=== PATIENT | male | born 1995 | race Caucasian/White ===

== ENCOUNTER 2016-04-20 17:06 | Emergency (ER) | payer OTHER ==
--- NOTE | 2016-04-20 18:47 | EDDOCDS ---
Nurse's Notes [facility] Name: Reza Jiang Age: 20 yrs Sex: Male : 1995 Arrival Date: 04/20/2016 Time: 17:06 Bed I8 / 16 Private MD: No Pcp Diagnosis: Chronic nasopharyngitis;Heartburn Presentation: 04/20 17:14 Presenting complaint: Patient states: post nasal drip going into his stomach that is dsf giving him heartburn and making him nauseated. Adult Sepsis Screening: The patient does not have new or worsening altered mentation. Patient's respiratory rate is less than 22. Systolic blood pressure is greater than 100. Patient has a qSOFA score of 0- Negative Sepsis Screen. Suicide/Homicide risk assessment- the patient denies having any suicidal and/or homicidal ideations and does not present with any other emotional, behavioral or mental health complaints. Status: Patient is not a service desk technician or dependent. Transition of care: patient was not received from another setting of care. 17:14 Acuity: CECILLE Level 4 dsf 17:14 Method Of Arrival: Walkin/Carried/Asstd dsf Triage Assessment: 17:15 General: Appears in no apparent distress, Behavior is appropriate for age, cooperative. dsf Pain: Location: epigastric area Pain currently is 6 out of 10 on a pain scale. Quality of pain is described as burning. HIV screening NA for this visit Offered previously. EENT: Reports post nasal drip . Historical: - Allergies: no known allergies; - Home Meds: 1. none - PMHx: none; - PSHx: none; - Social history: Smoking status: Patient uses tobacco products, current every day smoker. No barriers to communication noted, The patient speaks fluent Mohawk, Speaks appropriately for age. - Family history: No immediate family members are acutely ill. - : The pt / caregiver states he / she is not on anticoagulants. Home medication list is obtained from the patient. - Exposure Risk Screening:: None identified. Screenin:28 Screening information is obtained from the patient. Fall risk: No risks identified. mb9 Assistance ADL's: requires no assistance with activities of daily living. Abuse/DV Screen: The patient / caregiver reports he/she is: not in a situation that causes fear, pain or injury. Nutritional screening: No deficits noted. Advance Directives: There is no active DNR order. home support is adequate. Assessment: 18:28 General: Appears in no apparent distress, Behavior is anxious. Pain: Location: mb9 epigastric area Pain currently is 3 out of 10 on a pain scale. Quality of pain is described as burning. Respiratory: Airway is patent Respiratory effort is even, unlabored, Breath sounds are clear bilaterally. Reports cough that is. Vital Signs: 17:08 BP 116 / 66; Pulse 78; Resp 18 S; Temp 98.7(O); Pulse Ox 97% on R/A; Weight 90.72 kg gr2 (R); Height 6 ft. 2 in. (187.96 cm) (R); Pain 3/10; 18:39 BP 127 / 74; Pulse 57; Resp 18; Temp 98.1(O); Pulse Ox 98% on R/A; Pain 0/10; nb2 17:08 Body Mass Index 25.68 (90.72 kg, 187.96 cm) gr2 Vitals: 17:08 Log In Time: April 20, 2016 at 17:08. gr2 ED Course: 17:08 Patient visited by Amaury Walter. gr2 17:08 No Pcp is Private Physician. gr2 17:08 Patient moved to Waiting gr2 17:09 Patient visited by Amaury Walter. gr2 17:09 Patient moved to Pre RCE gr2 17:15 Triage Initiated dsf 18:19 Patient moved to I8 / 16 kr3 18:20 [facility] 18[facility]21 Patient visited by Christina Rodriguez RN. dls 18:25 Patient visited by Armida Ogden FNP. le 18:25 Patient visited by Armida Ogden FNP. le 18:28 The patient / caregiver is instructed regarding the plan of care and ED course. mb9 18:28 No IV's were initiated during this patient's visit. No procedures done that require mb9 assistance. 18:34 [facility] is Referral Physician. le 18:39 Patient visited by Sheila Byrne. nb2 Order Results: There are currently no results for this order. Outcome: 18:34 Discharge ordered by Provider. le 18:45 Discharge Assessment: Patient awake, alert and oriented x 3. No cognitive and/or mb9 functional deficits noted. Patient verbalized understanding of disposition instructions. patient administered narcotics - no. The following High Risk Discharge criteria are identified: None. Discharged to home ambulatory. Condition: good Condition: stable Condition: improved. Discharge instructions given to patient, Instructed on discharge instructions, follow up and referral plans. medication usage, Demonstrated understanding of instructions, medications, Pt was receptive of discharge instructions/ teaching. No special radiology studies were completed. Property :Personal belongings accompany Pt. 18:45 Patient left the ED. mb9 Signatures: Christina Rodriguez, RN RN dls Nancy Montano,RN RN kr3 Armida Ogden, LABORATORY SUPERVISOR LABORATORY SUPERVISOR Mary ColbertRN RN Amaury Gatica 2 Eddi WarnerRN RN mb9 Sheila Byrne nb2 MTDSally
--- NOTE | 2016-04-20 18:47 | EDDOCDS ---
Physician Documentation [facility] Name: Reza Jiang Age: 20 yrs Sex: Male : 1995 Arrival Date: 04/20/2016 Time: 17:06 Bed I8 / 16 Private MD: No Pcp Disposition: 04/20/16 18:34 Discharged to Home/Self Care. Impression: Chronic nasopharyngitis, Heartburn. - Condition is Stable. - Discharge Instructions: Gastroesophageal Reflux Disease, Adult, Upper Respiratory Infection, Adult, Viral Infections. - Medication Reconciliation, Local Pharmacy Hours form. - Follow up: [facility] - Adults; When: Call to arrange an appointment; Reason: Recheck today's complaints, Continuance of care. - Problem is an ongoing problem. - Symptoms are unchanged. - Notes: Use OTC cold/congestion medications to help control symptoms Keep hydrated Return to the ED for worsening symptoms Historical: - Allergies: no known allergies; - Home Meds: 1. none - PMHx: none; - PSHx: none; - Social history: Smoking status: Patient uses tobacco products, current every day smoker. No barriers to communication noted, The patient speaks fluent Georgian, Speaks appropriately for age. - Family history: No immediate family members are acutely ill. - : The pt / caregiver states he / she is not on anticoagulants. Home medication list is obtained from the patient. - Exposure Risk Screening:: None identified. Vital Signs: 04/20 17:08 BP 116 / 66; Pulse 78; Resp 18 S; Temp 98.7(O); Pulse Ox 97% on R/A; Weight 90.72 kg / gr2 200 lbs (R); Height 6 ft. 2 in. (187.96 cm) (R); Pain 3/10; 18:39 BP 127 / 74; Pulse 57; Resp 18; Temp 98.1(O); Pulse Ox 98% on R/A; Pain 0/10; nb2 17:08 Body Mass Index 25.68 (90.72 kg, 187.96 cm) gr2 MDM: 18:41 Financial registration complete. Signatures: Shawna Issa, Reg Reg gb Armida Ogden, SOUND ENGINEER SOUND ENGINEER Mary Colbert RN RN dsf Belles,Eddi,RN RN mb9 MTDD
--- NOTE | 2016-04-22 19:46 | EDDOCDS ---
Physician Documentation [facility] Name: Reza Jiang Age: 20 yrs Sex: Male : 1995 Arrival Date: 04/20/2016 Time: 17:06 Bed I8 / 16 Private MD: No Pcp Disposition: 04/20/16 18:34 Discharged to Home/Self Care. Impression: Chronic nasopharyngitis, Heartburn. - Condition is Stable. - Discharge Instructions: Gastroesophageal Reflux Disease, Adult, Upper Respiratory Infection, Adult, Viral Infections. - Medication Reconciliation, Local Pharmacy Hours form. - Follow up: [facility] - Adults; When: Call to arrange an appointment; Reason: Recheck today's complaints, Continuance of care. - Problem is an ongoing problem. - Symptoms are unchanged. - Notes: Use OTC cold/congestion medications to help control symptoms Keep hydrated Return to the ED for worsening symptoms Historical: - Allergies: no known allergies; - Home Meds: 1. none - PMHx: none; - PSHx: none; - Social history: Smoking status: Patient uses tobacco products, current every day smoker. No barriers to communication noted, The patient speaks fluent Setswana, Speaks appropriately for age. - Family history: No immediate family members are acutely ill. - : The pt / caregiver states he / she is not on anticoagulants. Home medication list is obtained from the patient. - Exposure Risk Screening:: None identified. Vital Signs: 04/20 17:08 BP 116 / 66; Pulse 78; Resp 18 S; Temp 98.7(O); Pulse Ox 97% on R/A; Weight 90.72 kg / gr2 200 lbs (R); Height 6 ft. 2 in. (187.96 cm) (R); Pain 3/10; 18:39 BP 127 / 74; Pulse 57; Resp 18; Temp 98.1(O); Pulse Ox 98% on R/A; Pain 0/10; nb2 17:08 Body Mass Index 25.68 (90.72 kg, 187.96 cm) gr2 MDM: 18:41 Financial registration complete. gb 19:17 [facility] Payment Agreement was scanned into [employer] and attached to record. gb 20:36 T-Sheet-- Draft Copy was scanned into [employer] and attached to record. klr Signatures: Shawna Issa, Reg Reg gb Armida Ogden, SURFACE SHIP USW SUPERVISOR SURFACE SHIP USW SUPERVISORMary Miller RN RN dsEddi Barber RN RN mb9 Estrella De Luna The chart was reviewed and I authenticate all verbal orders and agree with the evaluation and treatment provided.Attachments: 19:17 [facility] Payment Agreement gb 20:36 T-Sheet-- Draft Copy klr Chart Complete MTDD
--- NOTE | 2016-04-22 19:46 | EDDOCDS ---
Physician Documentation [facility] Name: Reza Jiang Age: 20 yrs Sex: Male : 1995 Arrival Date: 04/20/2016 Time: 17:06 Bed I8 / 16 Private MD: No Pcp Disposition: 04/20/16 18:34 Discharged to Home/Self Care. Impression: Chronic nasopharyngitis, Heartburn. - Condition is Stable. - Discharge Instructions: Gastroesophageal Reflux Disease, Adult, Upper Respiratory Infection, Adult, Viral Infections. - Medication Reconciliation, Local Pharmacy Hours form. - Follow up: [facility] - Adults; When: Call to arrange an appointment; Reason: Recheck today's complaints, Continuance of care. - Problem is an ongoing problem. - Symptoms are unchanged. - Notes: Use OTC cold/congestion medications to help control symptoms Keep hydrated Return to the ED for worsening symptoms Historical: - Allergies: no known allergies; - Home Meds: 1. none - PMHx: none; - PSHx: none; - Social history: Smoking status: Patient uses tobacco products, current every day smoker. No barriers to communication noted, The patient speaks fluent Azeri, Speaks appropriately for age. - Family history: No immediate family members are acutely ill. - : The pt / caregiver states he / she is not on anticoagulants. Home medication list is obtained from the patient. - Exposure Risk Screening:: None identified. Vital Signs: 04/20 17:08 BP 116 / 66; Pulse 78; Resp 18 S; Temp 98.7(O); Pulse Ox 97% on R/A; Weight 90.72 kg / gr2 200 lbs (R); Height 6 ft. 2 in. (187.96 cm) (R); Pain 3/10; 18:39 BP 127 / 74; Pulse 57; Resp 18; Temp 98.1(O); Pulse Ox 98% on R/A; Pain 0/10; nb2 17:08 Body Mass Index 25.68 (90.72 kg, 187.96 cm) gr2 MDM: 18:41 Financial registration complete. gb 19:17 [facility] Payment Agreement was scanned into [employer] and attached to record. gb 20:36 T-Sheet-- Draft Copy was scanned into [employer] and attached to record. klr Signatures: Shawna Issa, Reg Reg gb Armida Ogden, DISINTEGRATOR OPERATOR DISINTEGRATOR OPERATORMary Miller RN RN dsEddi Barber RN RN mb9 Estrella De Luna The chart was reviewed and I authenticate all verbal orders and agree with the evaluation and treatment provided.Attachments: 19:17 [facility] [place] Agreement gb 20:36 T-Sheet-- Draft Copy klr Chart Complete MTDD
--- NOTE | 2016-04-22 19:46 | EDDOCDS ---
Nurse's Notes [facility] Name: Reza Jiang Age: 20 yrs Sex: Male : 1995 Arrival Date: 04/20/2016 Time: 17:06 Bed I8 / 16 Private MD: No Pcp Diagnosis: Chronic nasopharyngitis;Heartburn Presentation: 04/20 17:14 Presenting complaint: Patient states: post nasal drip going into his stomach that is dsf giving him heartburn and making him nauseated. Adult Sepsis Screening: The patient does not have new or worsening altered mentation. Patient's respiratory rate is less than 22. Systolic blood pressure is greater than 100. Patient has a qSOFA score of 0- Negative Sepsis Screen. Suicide/Homicide risk assessment- the patient denies having any suicidal and/or homicidal ideations and does not present with any other emotional, behavioral or mental health complaints. Status: Patient is not a medical services manager or dependent. Transition of care: patient was not received from another setting of care. 17:14 Acuity: CECILLE Level 4 dsf 17:14 Method Of Arrival: Walkin/Carried/Asstd dsf Triage Assessment: 17:15 General: Appears in no apparent distress, Behavior is appropriate for age, cooperative. dsf Pain: Location: epigastric area Pain currently is 6 out of 10 on a pain scale. Quality of pain is described as burning. HIV screening NA for this visit Offered previously. EENT: Reports post nasal drip . Historical: - Allergies: no known allergies; - Home Meds: 1. none - PMHx: none; - PSHx: none; - Social history: Smoking status: Patient uses tobacco products, current every day smoker. No barriers to communication noted, The patient speaks fluent German, Speaks appropriately for age. - Family history: No immediate family members are acutely ill. - : The pt / caregiver states he / she is not on anticoagulants. Home medication list is obtained from the patient. - Exposure Risk Screening:: None identified. Screenin:28 Screening information is obtained from the patient. Fall risk: No risks identified. mb9 Assistance ADL's: requires no assistance with activities of daily living. Abuse/DV Screen: The patient / caregiver reports he/she is: not in a situation that causes fear, pain or injury. Nutritional screening: No deficits noted. Advance Directives: There is no active DNR order. home support is adequate. Assessment: 18:28 General: Appears in no apparent distress, Behavior is anxious. Pain: Location: mb9 epigastric area Pain currently is 3 out of 10 on a pain scale. Quality of pain is described as burning. Respiratory: Airway is patent Respiratory effort is even, unlabored, Breath sounds are clear bilaterally. Reports cough that is. Vital Signs: 17:08 BP 116 / 66; Pulse 78; Resp 18 S; Temp 98.7(O); Pulse Ox 97% on R/A; Weight 90.72 kg gr2 (R); Height 6 ft. 2 in. (187.96 cm) (R); Pain 3/10; 18:39 BP 127 / 74; Pulse 57; Resp 18; Temp 98.1(O); Pulse Ox 98% on R/A; Pain 0/10; nb2 17:08 Body Mass Index 25.68 (90.72 kg, 187.96 cm) gr2 Vitals: 17:08 Log In Time: April 20, 2016 at 17:08. gr2 ED Course: 17:08 Patient visited by Amaury Walter. gr2 17:08 No Pcp is Private Physician. gr2 17:08 Patient moved to Waiting gr2 17:09 Patient visited by Amaury Walter. gr2 17:09 Patient moved to Pre RCE gr2 17:15 Triage Initiated dsf 18:19 Patient moved to I8 / 16 kr3 18:20 [facility] 18[facility]21 Patient visited by Christina Rodriguez RN. dls 18:25 Patient visited by Armida Ogden FNP. le 18:25 Patient visited by Armida Ogden FNP. le 18:28 The patient / caregiver is instructed regarding the plan of care and ED course. mb9 18:28 No IV's were initiated during this patient's visit. No procedures done that require mb9 assistance. 18:34 [facility] - [facility] is Referral Physician. le 18:39 Patient visited by Sheila Byrne. nb2 19:17 [facility] Payment Agreement was scanned into [employer] and attached to record. gb 20:36 T-Sheet-- Draft Copy was scanned into [employer] and attached to record. klravi Order Results: There are currently no results for this order. Outcome: 18:34 Discharge ordered by Provider. le 18:45 Discharge Assessment: Patient awake, alert and oriented x 3. No cognitive and/or mb9 functional deficits noted. Patient verbalized understanding of disposition instructions. patient administered narcotics - no. The following High Risk Discharge criteria are identified: None. Discharged to home ambulatory. Condition: good Condition: stable Condition: improved. Discharge instructions given to patient, Instructed on discharge instructions, follow up and referral plans. medication usage, Demonstrated understanding of instructions, medications, Pt was receptive of discharge instructions/ teaching. No special radiology studies were completed. Property :Personal belongings accompany Pt. 18:45 Patient left the ED. karl Signatures: Christina Rodriguez, RN RN Shawna Lau, Nancy Azul RN RN kr3 Armida Ogden, TECHNICAL ASSISTANCE CONSULTANT TECHNICAL ASSISTANCE CONSULTANT Mary Colbert RN RN dsf Raymond, [place] 2 Eddi Warner RN RN [email or web address] Estrella De Luna Nicole nb2 Chart Complete FIORELLA
== END 2016-04-20 18:45 | disposition home or self-care (01) ==
LOC: M ED 17:06
DX: J31.0 Chronic rhinitis (principal); J06.9 Acute upper respiratory infection, unspecified; R12 Heartburn; F17.210 Nicotine dependence, cigarettes, uncomplicated

== ENCOUNTER 2017-04-07 00:43 | Emergency (ER) | payer OTHER ==
[2017-04-07] MEDS ORDERED: NAPROXEN 250 MG TAB PO (04:45)
== END 2017-04-07 04:48 | disposition home or self-care (01) ==
LOC: M ED 00:43
DX: M54.5 Low back pain (principal); F17.210 Nicotine dependence, cigarettes, uncomplicated
CPT/HCPCS: 72110

== ENCOUNTER 2017-07-12 10:54 | Emergency (ER) | payer OTHER | END 2017-07-12 12:34 | disposition home or self-care (01) | LOC: M ED 10:54 | DX: J20.9 Acute bronchitis, unspecified (principal); F17.200 Nicotine dependence, unspecified, uncomplicated; Z91.030 Bee allergy status | CPT/HCPCS: 71046 ==

== ENCOUNTER 2017-07-21 00:44 | Emergency (ER) | payer OTHER ==
[2017-07-21] MEDS: predniSONE 20 MG TAB PO (04:55)
[2017-07-21] MEDS: IPRATROPIUM 0.5MG/ALBUTEROL 2.5MG INH SOL UD 3ML (DUONEB)(J7620) NEB (05:05)
[2017-07-21 06:34] LABS: BASO # 0.1 10^3/uL (0.0-0.2); BASO % 0.2 % (0.0-1.0); EOS # 0.2 10^3/uL (0.0-0.50); EOS % 1.1 % (0.0-3.0); HEMATOCRIT 45.2 % (42.0-52.0); HEMOGLOBIN 15.7 g/dl (13.5-17.5); IMMATURE GRANULOCYTE % 0.4 % (0-3.0); LYMPH # 2.7 10^3/uL (1.5-6.5); LYMPH % 12.1 % (24.0-44.0); MEAN CORPUSCULAR HEMOGLOBIN 31.3 pg (27.0-33.0); MEAN CORPUSCULAR HGB CONC 34.7 g/dl (32.0-36.5); MONO # 1.3 10^3/uL (0.0-0.8); NEUTROPHILS # 17.6 10^3/uL (1.8-7.7); NEUTROPHILS % 80.2 % (36.0-66.0); PLATELET COUNT, AUTOMATED 300 10^3/uL (150-450); RED BLOOD COUNT 5.02 10^6/uL (4.30-6.10); RED CELL DISTRIBUTION WIDTH 12.1 % (11.5-14.5)
[2017-07-21 06:48] LABS: ANION GAP 7 MEQ/L (8-16); BLOOD UREA NITROGEN 15 MG/DL (7-18); CALCIUM LEVEL 8.9 MG/DL (8.5-10.1); CARBON DIOXIDE LEVEL 28 MEQ/L (21-32); CHLORIDE LEVEL 103 MEQ/L (98-107); CREATININE FOR GFR 1.06 MG/DL (0.70-1.30); GLUCOSE, FASTING 123 MG/DL (70-100); POTASSIUM SERUM 3.7 MEQ/L (3.5-5.1); SODIUM LEVEL 138 MEQ/L (136-145)
[2017-07-21] MEDS ORDERED: ISOVUE-370 76% 100ML VIAL (Q9967) As Ordered (06:50)
[2017-07-21] MEDS: LevoFLOXacin 750 MG TABLET PO (07:38)
== END 2017-07-21 07:50 | disposition home or self-care (01) ==
LOC: M ED 00:44
DX: J18.9 Pneumonia, unspecified organism (principal); F17.210 Nicotine dependence, cigarettes, uncomplicated; F12.20 Cannabis dependence, uncomplicated
CPT/HCPCS: Q9967

== ENCOUNTER 2017-11-11 20:56 | Emergency (ER) | payer OTHER ==
[2017-11-11] MEDS ORDERED: LIDOCAINE 1% MDV 20ML VIAL IM (22:45)
[2017-11-12] MEDS: AUGMENTIN 875 MG TAB PO (00:02)
[2017-11-12] MEDS: ADACEL/BOOSTRIX VACCINE (DIPHTH/PERTUSS/ACELL/TETANUS)0.5ML SYR (90715) IM (00:02)
== END 2017-11-12 00:10 | disposition home or self-care (01) ==
LOC: M ED 11-12 00:10
DX: S01.511A Laceration without foreign body of lip, initial encounter (principal); S00.83XA Contusion of other part of head, initial encounter; Y04.0XXA Assault by unarmed brawl or fight, initial encounter; Y92.098 Other place in other non-institutional residence as the place of occurrence of the external cause; F17.200 Nicotine dependence, unspecified, uncomplicated
CPT/HCPCS: 90715

== ENCOUNTER 2017-11-17 16:10 | Emergency (ER) | payer OTHER | END 2017-11-17 21:41 | disposition left against medical advice (07) | LOC: M ED 16:10 | DX: Z53.21 Procedure and treatment not carried out due to patient leaving prior to being seen by health care provider (principal) ==

== ENCOUNTER 2018-07-03 11:02 | Inpatient (IN) | payer MEDICAID, OTHER ==
[~2018-07-03] VITALS: Ht 188 cm; Wt 77.4 kg
[~2018-07-03 11:02] MED LIST: AUGM875T28 PO; LEVA750T7 PO; NAPR-837 PO; PRED20TA PO; TESS100C PO; VENTAER IN
[2018-07-03 11:37] LABS: HEMATOCRIT 45.9 % (42.0-52.0); HEMOGLOBIN 15.6 g/dl (13.5-17.5); MEAN CORPUSCULAR HEMOGLOBIN 32.2 pg (27.0-33.0); MEAN CORPUSCULAR VOLUME 94.8 fl (80.0-96.0); PLATELET COUNT, AUTOMATED 235 10^3/uL (150-450); RED BLOOD COUNT 4.84 10^6/uL (4.30-6.10); WHITE BLOOD COUNT 8.6 10^3/uL (4.0-10.0)
[2018-07-03 12:07] LABS: AMPHETAMINES LEVEL URINE NEGATIVE (NEGATIVE); BARBITURATES URINE NEGATIVE (NEGATIVE); BENZODIAZEPINES URINE NEGATIVE (NEGATIVE); CANNABINOIDS URINE POSITIVE (NEGATIVE); COCAINE METABOLITE URINE NEGATIVE (NEGATIVE); METHADONE URINE NEGATIVE (NEGATIVE); OPIATES URINE NEGATIVE (NEGATIVE); PHENCYCLIDINE URINE NEGATIVE (NEGATIVE)
[2018-07-03 12:35] LABS: ALBUMIN 4.1 GM/DL (3.2-5.2); ALT/SGPT 21 U/L (12-78); BILIRUBIN,DIRECT 0.1 MG/DL (0.0-0.2); BILIRUBIN,TOTAL 0.5 MG/DL (0.2-1.0); BLOOD UREA NITROGEN 15 MG/DL (7-18); CALCIUM LEVEL 8.5 MG/DL (8.5-10.1); CARBON DIOXIDE LEVEL 28 MEQ/L (21-32); CHLORIDE LEVEL 110 MEQ/L (98-107); ETHYL ALCOHOL (ETHANOL) < 0.003 % (0.000-0.010); GLOMERULAR FILTRATION RATE > 60.0 (>60); GLUCOSE, FASTING 96 MG/DL (70-100); POTASSIUM SERUM 4.3 MEQ/L (3.5-5.1); SALICYLATE LEVEL 3.6 MG/DL (5.0-30.0); SODIUM LEVEL 140 MEQ/L (136-145); THYROID STIMULATING HORMONE 0.792 uIU/ML (0.358-3.740); TOTAL PROTEIN 7.2 GM/DL (6.4-8.2)
[2018-07-03 12:36] LABS: ACETAMINOPHEN LEVEL < 2.0 UG/ML (10.0-30.0)
[2018-07-03] MEDS ORDERED: MOM 30ML SUSPENSION UDC PO PRN (15:15)
[2018-07-03] MEDS ORDERED: ACETAMINOPHEN TAB 650MG DOSE (2X325MG) PO PRN (15:15)
[2018-07-03] MEDS ORDERED: MAALOX 30 ML SUSP *UDC PO PRN (15:15)
[2018-07-03 15:50] VITALS: BP 121/75
[2018-07-03] MEDS: NICOTINE 21MG/24HR 1 EA TRANSDERMAL TD SCH (16:31)
[2018-07-03] MEDS: traZODone 50 MG TAB PO PRN (20:15)
[2018-07-04 06:24] VITALS: BP 122/73
[2018-07-04] MEDS: NICOTINE 21MG/24HR 1 EA TRANSDERMAL TD SCH (08:18)
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
[2018-07-04] MEDS: hydrOXYzine 25 MG TAB PO PRN (17:06)
[2018-07-04 18:00] VITALS: BP 129/78
--- NOTE | 2018-07-04 18:10 | HPEPDOC ---
General Date of Admission July 03, 2018 at 15:03 Attending Physician: GAY FIERRO MD Chief Complaint The patient is a 22-year-old male admitted with a reason for visit of Depressive Disorder. History of Present Illness Patient is a 22-year-old male, past medical history significant for polysubstance abuse with THC, who states he was brought to the hospital because his parents called the police stating he was trying to commit suicide. Patient states he was not. He was admitted to inpatient psychiatric unit for further evaluation and management by the mental health team. On evaluation, he feels fine, he has no complaints, denies any malaise. Home Medications Unable to Obtain Active Prescriptions or Reported Meds Allergies Coded Allergies: bee venom protein (honey bee) (Verified Allergy, Unknown, 07/03/18) Past Medical History Medical History Polysubstance abuse Surgical History Denies Family History Mother with throat cancer and diabetes mellitus Social History Smokes one pack per day, denies alcohol use, admits to THC use. A-FIB/CHADSVASC A-FIB History Current/History of A-Fib/PAF?: No Current Oral Anticoagulant The: No Review of Systems Other systems The pertinent review of systems was completed, negative except as stated in the history of present illness Physical Examination Other physical findings General: NAD. Skin: Warm, dry, intact. Cardiovascular: Regular rate and rhythm, no MRG, no jugular venous distention, no edema. Respiratory:CTAB, no accessory muscle use noted. Abdomen: Bowel sounds +, no tenderness, no distention Musculoskeletal: No joint deformities, Neurologic: CN 2-12 grossly intact, alert and oriented 3 Psychiatric: Appropriate mood and affect, no anxiety or agitation. Vital Signs Vital Signs Date Time Temp Pulse Resp B/P (MAP) Pulse Ox O2 Delivery O2 Flow Rate FiO2 07/04/18 06:24 97.8 65 16 122/73 (89) 07/03/18 14:53 99 Room Air Problems (1) Situational disturbance Status: Acute Problem Text: -Management by primary team (2) Cannabis use disorder, mild, abuse Status: Chronic Problem Text: -The patient has been counseled about drug use (3) Anxiety Problem Text: -Management per primary team Plan / VTE VTE Prophylaxis Ordered?: No VTE Exclusion Mechanical Proph: Low Risk for VTE NANCI SOTO July 04, 2018 18:10
[2018-07-04] MEDS: traZODone 50 MG TAB PO PRN (22:23)
[2018-07-05 06:28] VITALS: BP 131/69
[2018-07-05] MEDS: NICOTINE 21MG/24HR 1 EA TRANSDERMAL TD SCH (09:15)
[2018-07-05] MEDS: hydrOXYzine 25 MG TAB PO PRN ×3 (09:15→23:27)
[2018-07-05 18:00] VITALS: BP 138/77
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
[2018-07-05] MEDS: traZODone 50 MG TAB PO PRN (20:51)
[2018-07-06 06:41] VITALS: BP 135/76
[2018-07-06] MEDS: NICOTINE 21MG/24HR 1 EA TRANSDERMAL TD SCH (08:54)
[2018-07-06] MEDS ORDERED: TRAZO50TA PO (14:28)
[2018-07-06] MEDS ORDERED: NICO21PAT TD (14:28)
[2018-07-06] MEDS ORDERED: HYDR-3363 PO (14:28)
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
== END 2018-07-06 16:00 | disposition home or self-care (01) | DRG 756 ==
LOC: M ED 11:02 → M ED INP 15:03 → M PSY 15:59
PROVIDERS: ADMIT Psychiatry & Neurology Psychiatry; ATTEND Psychiatry & Neurology Psychiatry
DX: F41.8 Other specified anxiety disorders (principal); F17.200 Nicotine dependence, unspecified, uncomplicated; F12.180 Cannabis abuse with cannabis-induced anxiety disorder; F34.1 Dysthymic disorder; Z62.810 Personal history of physical and sexual abuse in childhood; Z81.8 Family history of other mental and behavioral disorders; Z91.030 Bee allergy status

== ENCOUNTER 2019-06-26 10:18 | Emergency (ER) | payer MEDICAID, OTHER, SELFPAY ==
[~2019-06-26] VITALS: Ht 185.4 cm; Wt 81.9 kg
[2019-06-26 10:18] VITALS: BP 130/72
[~2019-06-26 10:18] MED LIST changes: +HYDR-3363 PO; +NICO21PAT TD; +TRAZ1TAB10 PO
[2019-06-26] MEDS ORDERED: IBUP200C25 PO (10:25)
[2019-06-26] MEDS ORDERED: TRAM50TA2 PO (11:07)
[2019-06-26] MEDS ORDERED: CYCL5TAB PO (11:07)
[2019-06-26] MEDS ORDERED: ACET-683 PO (11:07)
== END 2019-06-26 11:25 | disposition home or self-care (01) ==
LOC: M ED 10:18
DX: M54.5 Low back pain (principal); F17.218 Nicotine dependence, cigarettes, with other nicotine-induced disorders; F12.10 Cannabis abuse, uncomplicated; Z91.030 Bee allergy status

== ENCOUNTER 2020-02-19 10:48 | Emergency (ER) | payer SELFPAY ==
[~2020-02-19] VITALS: Ht 188 cm; Wt 170.0 kg
[~2020-02-19 10:48] MED LIST changes: +ACET-683 PO; +CYCL5TAB PO; +IBUP200C25 PO; +TRAM50TA2 PO
[2020-02-19 11:43] LABS: HEMATOCRIT 48.9 % (42.0-52.0); HEMOGLOBIN 16.1 g/dl (13.5-17.5); MEAN CORPUSCULAR HGB CONC 32.9 g/dl (32.0-36.5); PLATELET COUNT, AUTOMATED 304 10^3/uL (150-450); WHITE BLOOD COUNT 6.8 10^3/uL (4.0-10.0)
[2020-02-19 12:10] LABS: AMPHETAMINES LEVEL URINE NEGATIVE (NEGATIVE); BARBITURATES URINE NEGATIVE (NEGATIVE); BENZODIAZEPINES URINE NEGATIVE (NEGATIVE); CANNABINOIDS URINE POSITIVE (NEGATIVE); COCAINE METABOLITE URINE NEGATIVE (NEGATIVE); METHADONE URINE NEGATIVE (NEGATIVE); OPIATES URINE NEGATIVE (NEGATIVE); PHENCYCLIDINE URINE NEGATIVE (NEGATIVE)
[2020-02-19 12:12] LABS: BLOOD UREA NITROGEN 13 MG/DL (7-18); CARBON DIOXIDE LEVEL 28 MEQ/L (21-32); CHLORIDE LEVEL 106 MEQ/L (98-107); CREATININE FOR GFR 0.96 MG/DL (0.70-1.30); GLOMERULAR FILTRATION RATE > 60.0 (>60); GLUCOSE, FASTING 99 MG/DL (70-100); POTASSIUM SERUM 3.9 MEQ/L (3.5-5.1); SODIUM LEVEL 140 MEQ/L (136-145)
[2020-02-19 12:13] LABS: ACETAMINOPHEN LEVEL < 2.0 UG/ML (10.0-30.0); ALBUMIN 4.5 GM/DL (3.2-5.2); ALT/SGPT 18 U/L (12-78); BILIRUBIN,DIRECT 0.1 MG/DL (0.0-0.2); BILIRUBIN,TOTAL 0.4 MG/DL (0.2-1.0); ETHYL ALCOHOL (ETHANOL) < 0.003 % (0.000-0.010); THYROID STIMULATING HORMONE 0.453 uIU/ML (0.358-3.740); TOTAL PROTEIN 7.8 GM/DL (6.4-8.2)
[2020-02-19 14:05] VITALS: BP 139/65
== END 2020-02-19 14:10 | disposition home or self-care (01) ==
LOC: M ED 10:48
DX: F43.0 Acute stress reaction (principal); Z91.030 Bee allergy status; F17.210 Nicotine dependence, cigarettes, uncomplicated; F12.20 Cannabis dependence, uncomplicated
CPT/HCPCS: 36415; 80048; 80076; 80307; 84443; 85027; 99284; G0480

== ENCOUNTER 2020-08-11 18:54 | Emergency (ER) | payer SELFPAY ==
[~2020-08-11] VITALS: Ht 185.4 cm; Wt 77.4 kg
[2020-08-11 18:54] VITALS: BP 150/90
== END 2020-08-11 22:08 | disposition left against medical advice (07) ==
LOC: M ED 18:54
DX: Z53.21 Procedure and treatment not carried out due to patient leaving prior to being seen by health care provider (principal)

== ENCOUNTER 2021-03-10 20:02 | Emergency (ER) | payer SELFPAY ==
[~2021-03-10] VITALS: Ht 185.4 cm; Wt 86.7 kg
[2021-03-10] MEDS ORDERED: IBUPROFEN 600MG TAB PO ONE (21:45)
[2021-03-10] MEDS ORDERED: AUGMENTIN 875 MG TAB PO ONE (21:45)
[2021-03-10] MEDS ORDERED: AUGM875T28 PO (21:48)
[2021-03-10] MEDS ORDERED: IBUP-1022 PO (21:48)
[2021-03-10 22:16] VITALS: BP 128/74
== END 2021-03-10 22:18 | disposition home or self-care (01) ==
LOC: M ED 20:02
DX: K08.89 Other specified disorders of teeth and supporting structures (principal); Z91.030 Bee allergy status; F17.210 Nicotine dependence, cigarettes, uncomplicated; F12.20 Cannabis dependence, uncomplicated

== ENCOUNTER 2021-03-10 20:40 | Emergency (ER) | payer SELFPAY ==
[2021-03-10] MEDS ORDERED: IBUP-1022 PO (21:48)
[2021-03-10] MEDS ORDERED: AUGM875T28 PO (21:48)
== END 2021-03-10 21:37 | disposition left against medical advice (07) ==
LOC: M ED 20:40
DX: Z53.29 Procedure and treatment not carried out because of patient's decision for other reasons (principal)

== ENCOUNTER 2022-01-29 00:54 | Emergency (ER) | payer SELFPAY ==
[~2022-01-29] VITALS: Ht 188 cm; Wt 80.2 kg
[~2022-01-29 00:54] MED LIST changes: +IBUP-1022 PO
[2022-01-29] MEDS ORDERED: ACETAMINOPHEN 500 MG TAB PO ONE (09:30)
[2022-01-29] MEDS ORDERED: AMOX875T2 PO (09:32)
[2022-01-29 09:49] VITALS: BP 125/68
== END 2022-01-29 09:51 | disposition home or self-care (01) ==
LOC: M ED 00:54
DX: H66.92 Otitis media, unspecified, left ear (principal); F17.200 Nicotine dependence, unspecified, uncomplicated; Z91.030 Bee allergy status

== ENCOUNTER 2023-01-03 09:49 | Emergency (ER) | payer SELFPAY ==
[~2023-01-03] VITALS: Ht 185.4 cm; Wt 83.0 kg
[2023-01-03 09:49] VITALS: BP 123/73; TEMP 98.6; O2SAT 97
[~2023-01-03 09:49] MED LIST changes: +AMOX875T2 PO
[2023-01-03] MEDS ORDERED: ACETAMINOPHEN TAB 650MG DOSE (2X325MG) PO ONE (12:10)
[2023-01-03] MEDS ORDERED: CYCLOBENZAPRINE 5MG TABLET PO ONE (12:10)
== END 2023-01-03 13:42 | disposition home or self-care (01) ==
LOC: M ED 09:49
DX: M54.2 Cervicalgia (principal); S09.90XA Unspecified injury of head, initial encounter; Y07.59 Other non-family member, perpetrator of maltreatment and neglect; F17.290 Nicotine dependence, other tobacco product, uncomplicated; Y92.9 Unspecified place or not applicable

== ENCOUNTER 2023-04-02 15:19 | Emergency (ER) | payer SELFPAY ==
[~2023-04-02] VITALS: Ht 182.9 cm; Wt 86.4 kg
[2023-04-02] MEDS ORDERED: BOOSTRIX VACCINE (TETANUS/DIPHTH/ACEL. PERTUSSIS) 0.5ML SYR IM.IMMUN ONE (15:50)
[2023-04-02] MEDS ORDERED: KETOROLAC 60MG 2ML VIAL IM ONE (15:50)
[2023-04-02] MEDS ORDERED: BACITRACIN OINTMENT 30GM TUBE TOP ONE (15:50)
[2023-04-02 17:32] VITALS: BP 130/67; TEMP 97.9; O2SAT 98
== END 2023-04-02 17:34 | disposition home or self-care (01) ==
LOC: M ED 15:19
DX: S70.211A Abrasion, right hip, initial encounter (principal); W19.XXXA Unspecified fall, initial encounter; Y92.410 Unspecified street and highway as the place of occurrence of the external cause; Y93.9 Activity, unspecified; Y99.9 Unspecified external cause status; F17.200 Nicotine dependence, unspecified, uncomplicated; Z91.030 Bee allergy status
CPT/HCPCS: 73502; 90471; 90715; 96372; 99284; J1885

== ENCOUNTER 2025-01-23 18:01 | Emergency (ER) | payer SELFPAY ==
[~2025-01-23] VITALS: Ht 185.4 cm; Wt 90.0 kg
[~2025-01-23 18:01] MED LIST changes: -CYCL5TAB PO; +CYCL5TAB4 PO; -IBUP-1022 PO; +IBUP600T42 PO
[2025-01-23] MEDS: CYCLOBENZAPRINE 10 MG TABLET PO ONE (19:11)
[2025-01-23] MEDS: IBUPROFEN 800 MG TAB PO ONE (19:11)
[2025-01-23] MEDS ORDERED: PRED20TA PO (20:28)
[2025-01-23] MEDS ORDERED: CYCL-707 PO (20:28)
[2025-01-23 20:35] VITALS: BP 131/76; TEMP 97; O2SAT 99
== END 2025-01-23 20:36 | disposition home or self-care (01) ==
LOC: M ED 18:01
DX: M62.838 Other muscle spasm (principal); F17.200 Nicotine dependence, unspecified, uncomplicated; Z91.030 Bee allergy status